=== PATIENT | female | born 1965 | race Two or more races ===

== ENCOUNTER 2024-12-14 10:41 | Emergency (ER) | payer OTHER ==
[~2024-12-14] VITALS: Ht 175.3 cm; Wt 69.4 kg
[2024-12-14] MEDS ORDERED: ROSUVASTATIN CA20 MG PO (10:47)
[2024-12-14] MEDS ORDERED: SERTRALINE20 MG/1 ML PO (10:48)
[2024-12-14] MEDS ORDERED: 0.9 % SODIUM CHLORIDE 1,000 ML IV STA (12:03)
[2024-12-14] MEDS ORDERED: HYOSCYAMINE SULFATE 0.125 MG TAB.SUBL SL ONE (12:15)
[2024-12-14 12:58] LABS: HEMATOCRIT 40.2 % (36.0-45.00); HEMOGLOBIN 13.7 g/dL (12.0-15.00); MEAN CELL VOLUME 88.8 fL (80.00-100.00); MEAN CORPUSCULAR HEMOGLOBIN 30.3 pg (27.00-32.0); MEAN CORPUSCULAR HGB CONC 34.1 g/dl (32.0-36.0); PLATELET COUNT 210 K/uL (150-450); RED BLOOD COUNT 4.53 M/uL (4.00-6.00); RED CELL DISTRIBUTION WIDTH 13.5 % (11.5-14.5)
[2024-12-14 13:36] LABS: ALBUMIN 3.9 gm/dL (3.4-5.0); BILIRUBIN TOTAL 0.36 mg/dL (0.3-1.2); CALCIUM 9.2 mg/dL (8.5-10.1); CREATININE SERUM 0.73 mg/dL (0.55-1.02); GFR 81.88; GLOBULINA 3.8 G/DL (2.4-3.5); POTASSIUM 4.23 mEq/L (3.5-5.1); TOTAL PROTEIN 7.7 gm/dL (6.4-8.2)
== END 2024-12-14 16:08 | disposition home or self-care (01) ==
LOC: ER 10:44
DX: R19.7 Diarrhea, unspecified (principal); Z88.8 Allergy status to other drugs, medicaments and biological substances